=== PATIENT | male | born 1945 | race Caucasian/White ===

== ENCOUNTER 2017-02-08 09:35 | Observation (INO) | payer MEDICARE, BC ==
[~2017-02-08] VITALS: Ht 182.9 cm; Wt 144.0 kg
--- NOTE | ~2017-02-08 | CST ---
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 Risks, complications and alternative treatments were reviewed. Written consent was obtained. Medications Reviewed with Patient prior to Procedure. Procedure Procedure Type: Nuclear Stress Test:Pharmacological, Lexiscan Procedure Start time: 02/09/2017 00:00 Indications: Chest pain, Hypertension and Atrial fibrillation. Risk Factors The patient risk factors include:obesity and treated hypertension. Conclusions Summary Perfusion Images: The overall quality of the study is good. Left ventricular cavity is noted to be normal on the stress and rest studies. There is no evidence of abnormal lung activity. The right ventricle is not visualized and cannot be assessed. Stress SPECT images demonstrate homogenous tracer distribution throughout the myocardium. Rest SPECT images demonstrate homogenous tracer distribution throughout the myocardium. Gated SPECT imaging reveals normal myocardial thickening and wall motion. The left ventricular ejection fraction was calculated to be 57%. Impression ECG portion of stress test is clinically negative for ischemia by diagnostic criteria. Myocardial perfusion imaging is normal. Overall left ventricular systolic function was normal without regional wall motion abnormalities. There are no previous studies for comparison. Stress Protocols Resting ECG Atrial fibrillation. Resting HR:73 bpm Resting BP:120/66 mmHg Stress Protocol:Pharmacologic Predicted HR: 150 bpm Test duration: 06:00 min Reason for termination:Infusion complete ECG Findings No ECG changes suggestive of ischemia. Arrhythmias No rhythm abnormality. Symptoms Shortness of breath. Complications Procedure complication: None. Stress Interpretation Appropriate hemodynamic response to Lexiscan. No significant ST-T wave changes with Lexiscan. ECG portion is negative for ischemia by diagnostic criteria. Imaging Results Summed scores - Summed stress score: 0 - Summed rest score: 1 - Summed difference score: -1 Stress ejection Ejection fraction:57 % EDV :151 ml ESV :65 ml Stroke volume :86 ml LV mass :163 gr Imaging Protocols Rest Stress Isotope:Tc99m Myoview IV Isotope: Tc99m Myoview IV Isotope dose:10.2 mCi Isotope dose:30.5 mCi Date:02/09/2017 06:44 Date:02/09/2017 08:10 Technique: SPECT Technique: Gated Supine SPECT Supine IV remains in place after procedure. Scan Time:30 minutes post injection Scan Time:15-30 minutes post injection Procedure Medications - Regadenoson (Lexiscan) 0.4 mg IV over 10-15 sec. I.V. 0.4 mg. Medications administered per verbal order and read back to physician prior to administration. Medical History Admission Data Admission date: 02/08/2017 Admission Time: 11:06 Hospital Status: Inpatient. Signatures
[2017-02-10] MEDS ORDERED: LASIX DPS40 MG PO (06:46)
[2017-02-10] MEDS ORDERED: CELEXA DPS20 MG PO (06:46)
[2017-02-10] MEDS ORDERED: TOPROL XL50 MG PO (06:46)
[2017-02-10] MEDS ORDERED: LEVOTHYROXINE200 MCG PO (06:47)
[2017-02-10] MEDS ORDERED: COUMADIN5 MG PO ×2 (06:47→06:48)
[2017-02-10] MEDS ORDERED: DAILY MULTIPLE1 EAC1 PO (06:48)
[2017-02-10] MEDS ORDERED: VITAMIN D-32000 UNI1 PO (06:49)
[2017-02-10] MEDS ORDERED: ASPIR 8181 MG PO (06:49)
[2017-02-10] MEDS ORDERED: CALCIUM500 MG PO (06:49)
[2017-02-10] MEDS ORDERED: PROTONIX40 MG PO (06:50)
[2017-02-10] MEDS ORDERED: VITAMIN B-121000 MCG PO (06:50)
[2017-02-10] MEDS ORDERED: TYLENOL DPS325 MG PO (06:50)
[2017-02-10] MEDS ORDERED: MAALOX DPS30 ML PO (06:50)
--- NOTE | 2017-02-10 09:36 | ER ---
ADMIT: 02/08/2017 RM/LOC: 427 [facility] MR#: [id number] [address] [facility] [address] [place], [place] [id number] [place] [address] Emergency Room Report SEX: M AGE: 72 : 1945 DATE: 02/08/2017 TIME: 0935 hours. PRIMARY CARE: Rick tolentino, DO Please refer to my T-sheet for complete H and P. HISTORY OF PRESENT ILLNESS: Briefly, the patient is a 72-year-old, who comes in with chest pain on and off for couple days. It does not really radiate, just kind of feels pressure. It has been persistent until this morning across his chest. He had a cath about a year ago. He said that was okay "he does feel a little bit lightheaded at times." He has a history of atrial fibrillation, anticoagulated high blood pressure, and hypothyroid, and he is here for evaluation. PHYSICAL EXAMINATION: VITAL SIGNS: Blood pressure 96/56, pulse 77, respirations 12, temp 96.7, and sat 99%. GENERAL: No acute distress. HEENT: Grossly normal. LUNGS: Clear. HEART: Irregularly irregular. No murmur. ABDOMEN: Soft. SKIN: No rash. EXTREMITIES: 3+ edema. EMERGENCY ROOM COURSE: Cardiac routine was obtained. EKG was AFib, rate 72, no hyperacute changes. Chest x-ray revealed no acute changes. Mild cardiomegaly. CBC is normal except hemoglobin 13.1. Chemistries normal except BUN 26, glucose 102, cardiac enzymes all negative. INR was 1.97. We gave him 250 mL bolus. His pressures were still around the 90s, was asymptomatic with it, however I talked to Dr. Tolentino. We are going to admit to the hospital and reassess his medications and his blood pressure and rule him out. ASSESSMENT: 1. Chest pain, atypical. Pain free right now with negative enzymes. 2. Mild hypotension. This has been persistent. PLAN: Admit to the hospital. Vernon Rodriguez MD/ yinka JOB #: [id number] CC: Rick Tolentino DO, Attending Physician Rick Tolentino DO, Family Physician
--- NOTE | 2017-02-26 16:18 | CO ---
ADMIT: 02/08/2017 RM/LOC: 427 [facility] MR#: [id number] [address] [facility] [address] [place] [id number] [place] [address] Consultation SEX: M AGE: 72 : 1945 DATE OF CONSULTATION: 02/08/2017 ATTENDING PHYSICIAN: Rick Brooks CONSULTING PHYSICIAN: Holden Esquivel MD CHIEF COMPLAINT: Chest pain. HISTORY OF PRESENT ILLNESS: The patient is a 72-year-old male, who has a previous history of permanent atrial fibrillation, who states that approximately a day ago, he had some chest discomfort. He describes it as substernal fullness. When he would take in a deep breath, it seemed to get a little bit worse at time and sometimes got better with belching. These symptoms subsided, but did not completely go away by this morning and because of this, he thought he better have further evaluation. He presented to the emergency room and was subsequently admitted to the hospital for further evaluation. He states that this was not really accompanied with any shortness of breath. He had no radiation to his arms or his neck and had no nausea or vomiting associated with it. He is currently pain free. He does have a previous history of permanent atrial fibrillation and also had a positive stress test year and a half ago. At which time, he underwent a heart catheterization which showed nonobstructive disease. He has had no real problems since then and tell the above-described issues. He had no other complaints. PAST MEDICAL HISTORY: Significant for: 1. Permanent atrial fibrillation. 2. Eye lid surgery. 3. Bariatric sleeve procedure. 4. BPH. 5. Depression. 6. Reflux. 7. Hypothyroidism. 8. Sleep apnea. 9. History of hypothyroidism. 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 ALLERGIES: NONE. HOME MEDICATIONS: 1. Furosemide 40 mg daily. 2. Citalopram 20 mg daily. 3. Metoprolol succinate 50 mg in the evening. 4. Levothyroxine 0.2 mg daily. 5. Coumadin daily. 6. Multivitamin daily. 7. Calcium 500 mg daily. 8. Vitamin D3, 2000 units daily. 9. Aspirin 81 mg daily. ADMIT: 02/08/2017 RM/LOC: 427 [facility] MR#: [id number] [address] [facility] [address] [place] [id number] [address] [place] [address] [place] [address] Consultation SEX: M AGE: 72 : 1945 10.Vitamin B12, 1000 mcg Wednesday, Wednesdays, and Fridays. FAMILY HISTORY: Significant for father had a stroke. Mother had diabetes. SOCIAL HISTORY: The patient does not smoke. Has no real significant alcohol use. REVIEW OF SYSTEMS: GENERAL: He has had some fatigue and the recent chest discomfort. He has some occasional arm and leg pains, now resolved. Denies fever, chills, sweats, rash, or weight loss. EYES: Denies double vision, blurred vision, cataracts, or glaucoma. ENT: Denies hearing loss or problems with nose, mouth or throat. PULMONARY: Denies cough, sputum production, asthma, emphysema or bronchitis. Denies snoring loudly, wakefulness at night, or fatigue upon awakening. GASTROINTESTINAL: Denies heartburn or difficulty swallowing. No change in bowel habits. Denies dark or bloody stools. No history of ulcers, hiatal hernia, or gallbladder or liver disease. GENITOURINARY: Denies dysuria, hematuria, nocturia, urinary tract infection, or kidney stones. Denies history of renal insufficiency or failure. MUSCULOSKELETAL: Denies history of arthritis or gout. Denies muscle or joint pains. ENDOCRINE: Denies history of thyroid dysfunction or diabetes. HEMATOLOGIC: Denies history of anemia, easy bruising, or cancer. NEUROLOGIC: Denies chronic headaches, dizziness, syncope, stroke, seizures or numbness or tingling. PSYCHIATRIC: Denies history of mental illness or feelings of depression. PHYSICAL EXAMINATION: VITAL SIGNS: Blood pressure was 92/57, heart rate 76, respirations 18, and temperature 97.7 degrees Fahrenheit. SKIN: Jew[place], warm and dry. EYES: Sclerae clear. No xanthelasmas. ENT: Oral mucosa is pink and moist. No jugular venous distention or carotid bruits. CHEST: Respirations are even and unlabored. Lungs are clear to auscultation. HEART: Irregularly irregular. Normal S1, S2. No murmurs, rubs or gallops. ABDOMEN: Soft and nontender. MUSCULOSKELETAL: Gait is normal. EXTREMITIES: Peripheral pulses palpable. No clubbing, cyanosis or edema. PSYCHIATRIC: Alert and oriented. Mood and affect are appropriate. ASSESSMENT: 1. Chest pain. 2. Permanent atrial fibrillation. 3. Hypertension. 4. Hypothyroidism. ADMIT: 02/08/2017 RM/LOC: 427 [facility] MR#: [id number] [address] [place] [id number] [address] [address] [place] [address] Consultation SEX: M AGE: 72 : 1945 PLAN: With the patient's recurrent symptoms, I would like to check an echocardiogram to make sure his ejection fraction is stable. We will also continue to do cardiac enzymes to make sure there is no evidence of elevation. If either of these two things are abnormal, we would potentially do a heart catheterization in the morning. If the echo and the enzymes are normal, we would proceed with a Lexiscan nuclear stress test. He also has some symptoms that are somewhat suspicious for gastrointestinal cause, so he has been started on a proton pump inhibitor. We will await the above studies and see how he responses to the medications. Holden Esquivel MD/ yinka JOB #: [id number] CC: Rick Brooks, Attending Physician Rick Brooks, Family Physician Rick Brooks, DO
== END 2017-02-09 14:26 | disposition home or self-care (01) ==
LOC: ER 09:35 → 4PCU 11:06
PROVIDERS: ADMIT Internal Medicine
DX: R07.9 Chest pain, unspecified (principal); I48.2 Chronic atrial fibrillation; I10 Essential (primary) hypertension; E03.9 Hypothyroidism, unspecified; Z79.899 Other long term (current) drug therapy